=== PATIENT | male | born 1990 | race African-American/Black ===

== ENCOUNTER 2016-09-04 18:14 | Emergency (ER) | payer SELFPAY | END 2016-09-04 20:09 | disposition home or self-care (01) | LOC: MADERS 18:14 | DX: M79.641 Pain in right hand (principal); M79.642 Pain in left hand | CPT/HCPCS: 99283 ==

== ENCOUNTER 2016-11-16 15:46 | Emergency (ER) | payer SELFPAY ==
--- NOTE | 2016-11-16 18:42 | RAD ---
RIGHT ELBOW 11/16/16 Four views obtained. HISTORY: Fell from horse with injury to elbow. No evidence of acute fracture. No evidence of joint effusion. IMPRESSION: No acute fracture identified. POS: [facility]
== END 2016-11-16 17:19 | disposition home or self-care (01) ==
LOC: MADERS 15:46
DX: S53.401A Unspecified sprain of right elbow, initial encounter (principal); V80.010A Animal-rider injured by fall from or being thrown from horse in noncollision accident, initial encounter

== ENCOUNTER 2018-10-24 21:05 | Emergency (ER) | payer SELFPAY | END 2018-10-24 21:15 | disposition left against medical advice (07) | LOC: MADERS 21:05 | DX: Z53.21 Procedure and treatment not carried out due to patient leaving prior to being seen by health care provider (principal) ==

== ENCOUNTER 2018-10-27 18:59 | Emergency (ER) | payer BC, SELFPAY | END 2018-10-27 20:02 | disposition home or self-care (01) | LOC: MADERS 18:59 | DX: H61.23 Impacted cerumen, bilateral (principal) | CPT/HCPCS: 99281 ==